=== PATIENT | female | born 1960 | race Caucasian/White ===

== ENCOUNTER → 2017-04-28 | Outpatient (CLI) | payer OTHER | LOC: MC.RAD 07:40 | DX: Z12.31 Encounter for screening mammogram for malignant neoplasm of breast (principal) ==

== ENCOUNTER → 2018-07-20 | Outpatient (CLI) | payer OTHER | LOC: MC.RAD 09:01 | DX: Z12.31 Encounter for screening mammogram for malignant neoplasm of breast (principal) ==

== ENCOUNTER → 2019-12-29 | Outpatient (CLI) | payer OTHER | LOC: MC.RAD 11-02 15:30 | DX: Z12.31 Encounter for screening mammogram for malignant neoplasm of breast (principal) ==

== ENCOUNTER → 2021-08-22 | Outpatient (CLI) | payer OTHER | LOC: MC.RAD 15:33 | DX: Z12.31 Encounter for screening mammogram for malignant neoplasm of breast (principal) ==

== ENCOUNTER → 2024-01-20 | Outpatient (CLI) | payer OTHER | LOC: MC.RAD 07:30 | DX: Z12.31 Encounter for screening mammogram for malignant neoplasm of breast (principal) ==